=== PATIENT | female | born 1970 | race Caucasian/White ===

== ENCOUNTER → 2016-11-06 | Outpatient (CLI) | payer OTHER ==
[~2016-11-06] VITALS: Ht 157.5 cm; Wt 109.7 kg
[~2016-11-06] MED LIST: ADVIL,NUPRIN,M200 MG PO; ASPIR 8181 M1 PO; Bactrim,Septra DS 80 PO; CLEOCIN600 MG IV; ENDOCET 5-3251 EACH PO; FLUVOXAMINE MA100 MG PO; LUVOX CR150 MG PO; TORADOL30 MG/ML IM/IV; Tylenol Regular Stre PO; XANAX0.5 MG PO
== END | disposition home or self-care (01) ==
LOC: AMB 11:30
DX: K29.70 Gastritis, unspecified, without bleeding (principal); B96.81 Helicobacter pylori [H. pylori] as the cause of diseases classified elsewhere; K20.9 Esophagitis, unspecified; F41.9 Anxiety disorder, unspecified; Z80.1 Family history of malignant neoplasm of trachea, bronchus and lung; Z80.0 Family history of malignant neoplasm of digestive organs; Z88.0 Allergy status to penicillin
CPT/HCPCS: 88305; 88342 TC; J2250; J3010

== ENCOUNTER 2017-01-03 13:35 | Emergency (ER) | payer OTHER ==
[~2017-01-03] VITALS: Ht 157.5 cm; Wt 111.7 kg
[2017-01-03] MEDS ORDERED: ZOFRAN4 MG PO (17:26)
[2017-01-03 18:10] VITALS: BP 115/72
== END 2017-01-03 18:15 | disposition home or self-care (01) ==
LOC: EME 13:35
DX: S06.0X0A Concussion without loss of consciousness, initial encounter (principal); S01.01XA Laceration without foreign body of scalp, initial encounter; M54.2 Cervicalgia; Z23 Encounter for immunization; W17.89XA Other fall from one level to another, initial encounter; Z88.0 Allergy status to penicillin
CPT/HCPCS: 70450; 72040

== ENCOUNTER 2017-01-05 22:38 | Emergency (ER) | payer OTHER ==
[~2017-01-05] VITALS: Ht 157.5 cm; Wt 104.5 kg
[~2017-01-05 22:38] MED LIST changes: +ZOFRAN4 MG PO
[2017-01-05 22:50] VITALS: BP 118/99
[2017-01-06] MEDS ORDERED: ZOFRAN ODT4 MG PO (01:41)
[2017-01-06] MEDS ORDERED: MOTRIN800 MG PO (01:41)
[2017-01-06] MEDS ORDERED: ANTIVERT25 MG PO (01:41)
[2017-01-06] MEDS ORDERED: FIORICET 50-301 EACH PO (01:41)
== END 2017-01-06 02:35 | disposition home or self-care (01) ==
LOC: EME 22:38
DX: F07.81 Postconcussional syndrome (principal)
CPT/HCPCS: 99281; 99284